=== PATIENT | male | born 1965 | race American Indian/Alaskan Native ===

== ENCOUNTER 2024-09-11 13:45 | Emergency (ER) | payer MEDICAID, SELFPAY ==
[2024-09-11] VITALS (7 sets, daily range): BP systolic 152–168; BP diastolic 92–98; PULSE 82–109; RESP 14–22; TEMP 36.6–37.1; O2SAT 96–100; BMI 29.2
--- NOTE | 2024-09-11 13:59 | EDNOTE_ITS ---
ED Seizures RME/HPI General Chief Complaint: Seizure Stated Complaint: POSSIBLE SEIZURE AFTER PUT IN HANDCUFFS Time Seen by Provider: 09/11/24 14:06 Arrival date/time: 09/11/24 13:45 RME / HPI RME / HPI Narrative: DR. DAILEY MAIN ED EVALUATION: 59 year old male with past medical history significant for valley fever, hypertension, and COPD/ current tobacco smoker, methamphetamine abuse presents to the Emergency Department BIBA after a possible seizure after he was put in handcuffs by police; he was let go by police and brought in for evaluation. Per EMS, police reported seizure lasted 30 seconds to a 1 minute. After patient became more alert he complained of the following: left lower leg swelling, some shortness of breath, and a productive cough with yellow phlegm. No fevers or chills. No other symptoms reported at this time. He states he was recently admitted for pneumonia discharged on 05/13/24. Related Data Previous Rx's ?Medication ?Instructions ?Recorded albuterol sulfate 90 mcg/actuation 1 inh inhalation QI D PRN shortness 05/13/24 aerosol inhaler of breath or wheezing #6.7 g sarah beth azithromycin 250 mg tablet 250 mg PO QDAY 4 days #4 ta bs 09/11/24 Allergies Allergy/AdvReac Type Severity Reaction Status Date / Time coconut Allergy Severe Hives Verified 09/11/24 14:11 iodine Allergy Severe Hives Verified 09/11/24 14:11 Penicillins Allergy Severe Hives Verified 09/11/24 14:11 Review of Systems Review of Systems Systems Reviewed: All systems reviewed, normal except as documented Narrative Review of Systems: GEN: No fever, no chills, no weight loss, + left lower leg swelling EYES: No discharge, no visual changes, no pain HEENT: No ear pain, no congestion, no sore throat PULM: + mild shortness of breath, + productive cough with yellow phlegm CV: No chest pain, no dyspnea on exertion, no palpitations GI: No nausea, no vomiting, no diarrhea, no pain, no constipation : No frequency, no urgency and no dysuria MUSC/SKEL: No joint pain, no back pain SKIN: No rash PSYCH: No hallucinations, no depression HEME/LYMPH: No easy bleeding or bruising tendencies NEURO: No weakness, no headache, + possible seizure (see HPI) Past Medical History Past Medical History NEUROLOGIC: Positive Epilepsy CARDIAC: Positive Cardiac Disorders, Myocardial Infarction and Hypertension RESPIRATORY: Positive Chronic Obstructive Pulmonary Disease (COPD), Asthma and Pneumonia Family History FAMILY HISTORY: Positive Family Respiratory Disorders, Family Cardiac Disorders and Family Cancer Social History SMOKING STATUS: Current some day smoker SECOND HAND EXPOSURE: No SUBSTANCE USE: methamphetamine ALCOHOL: Never ED Exam Narrative Physical exam: GENERAL APPEARANCE: alert and oriented x 4, well-developed, well-nourished VITALS: All vitals were reviewed and the pulse ox is 98% on room air, which is normal according to my interpretation. HEENT: Normocephalic, atraumatic; pupils equal, round, reactive to light; EOMI; mucous membranes pink, moist; oropharynx clear NECK: Supple LUNGS: there are some mild wheezes, no rales and no rhonchi HEART: tachycardic, regular rhythm; normal S1, S2; no murmurs ABDOMEN: non distended; normal BS; soft, no tenderness, no guarding, no rebou nd; no masses, no organomegaly, no hernia BACK: no CVA tenderness EXTREMITIES: atraumatic; there is 2+ pitting edema left lower extremity only NEUROLOGIC: awake; alert and oriented x4; cranial nerves II-XII grossly intact; no focal sensory or motor deficits PSYCHIATRIC: appropriate mood and affect SKIN: warm, dry, normal color; no rashes Course Quality Measures none Orders Category Date Time Status Service Desk Agent NOW Care 09/11/24 14:46 Completed EKG (ED ONLY) *Do not use* NOW Care 09/11/24 14:46 Completed EKG (ED Only) Stat Exams 09/11/24 14:46 Draft US venous doppler LE LT Stat Exams 09/11/24 14:46 Completed XR chest 1V portable Stat Exams 09/11/24 14:46 Completed Alcohol, Blood Medical Stat Lab 09/11/24 15:12 Completed B-Type Natriuretic Peptide Stat Lab 09/11/24 15:12 Completed CBC Stat Lab 09/11/24 15:12 Completed Comprehensive Metabolic Panel Stat Lab 09/11/24 15:12 Completed Drug Screen,Urine Stat Lab 09/11/24 16:15 Completed Lipase Stat Lab 09/11/24 15:12 Completed Magnesium Stat Lab 09/11/24 15:12 Completed Partial Thromboplastin Time Stat Lab 09/11/24 15:12 Completed Prothrombin Time with INR Stat Lab 09/11/24 15:12 Completed Troponin I Stat Lab 09/11/24 15:12 Completed UA, C/S IF [Urinalysis, C/S if Indicated] Stat Lab 09/11/24 16:15 Completed Albuterol/Ipratr Rt Maggi [Duoneb Rt Maggi] Med 09/11/24 14:46 Discontinued 3 ml INH X1 ONE Azithromycin Po [Zithromax PO] Med 09/11/24 17:57 Discontinued 500 mg PO X1 ONE Vital Signs Vital signs: Vital Signs Temperature 97.8 F 09/11/24 14:00 Pulse Rate 109 H 09/11/24 14:00 Respiratory Rate 18 09/11/24 14:00 Blood Pressure 162/98 H 09/11/24 14:00 Pulse Oximetry (%) 97 09/11/24 14:00 Oxygen Delivery Method Room Air 09/11/24 14:00 Procedures -ED EKG Interpretation #1: Date of EK09/11/24 Time of EK:58 Rate: 90 Interpretation: Interpreted by me Additional EKG comment: sinus rhythm, rate 90, no acute ischemic changes Seizure MDM Narrative MDM Narrative:: IDee am scribing for and in the presence of Dr. Dailey. Patient data External records reviewed:: [facility] (Reviewed last admission discharge dated 05/13/24, patient admitted for the following: Pneumonia) and EMS form Clinical information provided by:: patient and EMS Social determinants that could affect healthcare access:: other (specify) (current tobacco smoker, methamphetamine abuse) Patient has the following chronic illnesses:: valley fever, hypertension, and COPD/ current tobacco smoker, methamphetamine How is presenting disease/condition affected by chronic disease/condition?: exacerbated by Evaluation data The following diagnostics were reviewed and interpreted by me:: lab results, radiology exam(s) and EKG tracing(s) (EKG#1: EKG at 1458 hours. Interpreted by me: sinus rhythm, rate 90, no acute ischemic changes) Lab and/or radiology exams considered but not ordered:: none Interpretation Summary: Procedure(s): XR chest 1V portable Accession Number(s): [id number] cc: Alexander Gage MD; Camille Dailey MD; DONAL ARREAGA~ EXAMINATION: XR chest 1V portable ORDERING PROVIDER: Camille Dailey MD HISTORY: chest pain TECHNIQUE: Single portable AP radiograph of the chest. COMPARISON: 05/11/2024, chest radiographs. FINDINGS: Lines and Tubes: Overlying monitoring leads. Lungs: Clear. Pleura: No pneumothorax or pleural effusion. Cardiomediastinal Silhouette: Normal. Soft Tissues/Bones: Glenoid anchor screw on the left. Metallic necklace. IMPRESSION: No acute pulmonary findings. Dictated By: Alexander Gage MD Procedure(s): US venous doppler LE LT Accession Number(s): [id number] cc: Alexander Gage MD; Camille Dailey MD; DONAL ARREAGA~ EXAMINATION: US venous doppler LE HISTORY: edema COMPARISON: None. FINDINGS: Nelson scale, color doppler, and spectral waveforms of the left lower extremity veins. The imaged veins are unremarkable without evidence of internal thrombus. Spectral Doppler imaging demonstrates normal wave forms. The overlying soft tissues are unremarkable. IMPRESSION: Negative for deep venous thrombosis. Dictated By: Alexander Gage MD Medications / Prescriptions Medications or Prescriptions considered but not ordered:: none Medication administrations:: Medication Administration History Discontinued Medications Albuterol/Ipratropium (Albuterol/Ipratropium (Duoneb) Rt Maggi 3 Ml Nebu) 3 ml INH X1 ONE Stop: 09/11/24 14:47 Last Admin: 09/11/24 15:18 Dose: 3 ml Documented By: [facility] Azithromycin (Azithromycin 250 Mg Tablet) 500 mg PO X1 ONE Stop: 09/11/24 17:58 Last Admin: 09/11/24 18:11 Dose: Not Given Documented By: [facility](2) Non-Admin Reason: Patient Refused see above if any Consultations Consultation(s) initiated? (list below): No Diagnosis Seizure Differential Diagnosis: generalized seizure, epileptic seizure and other (DVT, pneumonia, influenza) Most likely diagnosis given after review of the tests above:: Bronchitis Methamphetamine abuse Admission Indicated Admission indicated?: not indicated Admission Request Was there a request for admission?: No Disposition Plan Disposition Plan: Discharge Discharge Attestation Discharge Attestation: The patient and all family members were given an opportunity to ask questions and understood the discharge instructions. Discharge instructions specifically effects, indications for sooner follow up or return to the emergency department, and the expected course of current diagnosis. Patient condition: Stable Discharge Plan Plan Patient Disposition: HOME (Self Care) Prescriptions/Referrals Prescriptions/Med Rec: New azithromycin 250 mg tablet 250 mg PO QDAY 4 Days Qty: 4 0RF Rx Instructions: start on day 2 of therapy No Action albuterol sulfate 90 mcg/actuation HFA aerosol inhaler 1 inh inhalation QID PRN (Reason: shortness of breath or wheezing) Qty: 6.7 0RF Referrals: Donal Arreaga PA-C [Primary Care Provider] - In 1 week Problem List Clinical Impression: Bronchitis, Methamphetamine abuse Patient/Caregiver Discharge Instructions Education Materials: ED Bronchitis with Wheezing (Adult), ED Drug Abuse Print Language: Icelandic Stand Alone Forms: Leidy Award Info., Patient Portal Info Letter
--- NOTE | 2024-09-11 14:20 | PC.NURSE ---
PATIENT ARRIVED ED VIA EMS SECONDARY TO SEIZURE ACTIVITY. SEIZURE WAS WITNESSED BY [facility] AT SCENE. NO TRAUMA. PATIENT ARRIVED WITH NO COMPLAINTS AT TIME OF ASSESSMENT. IV ESTABLISHED BY EMS, BS OF 106. PATIENT PLACED ON MONITOR AND SEIZURE PRECAUTIONS IN PLACE. PATIENT GIVEN CALL LIGHT AND IS IN VISUAL LINE OF NURSES. WILL CONTINUE TO MONITOR.
--- NOTE | 2024-09-11 14:46 | XR_ITS ---
EXAMINATION: US venous doppler LE LT HISTORY: edema COMPARISON: None. FINDINGS: Nelson scale, color doppler, and spectral waveforms of the left lower extremity veins. The imaged veins are unremarkable without evidence of internal thrombus. Spectral Doppler imaging demonstrates normal wave forms. The overlying soft tissues are unremarkable. IMPRESSION: Negative for deep venous thrombosis.
--- NOTE | 2024-09-11 14:46 | EKG_ITS ---
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
--- NOTE | 2024-09-11 14:46 | XR_ITS ---
EXAMINATION: XR chest 1V portable ORDERING PROVIDER: Camille Dailey MD HISTORY: chest pain TECHNIQUE: Single portable AP radiograph of the chest. COMPARISON: 05/11/2024, chest radiographs. FINDINGS: Lines and Tubes: Overlying monitoring leads. Lungs: Clear. Pleura: No pneumothorax or pleural effusion. Cardiomediastinal Silhouette: Normal. Soft Tissues/Bones: Glenoid anchor screw on the left. Metallic necklace. IMPRESSION: No acute pulmonary findings.
[2024-09-11] MEDS: ALBUTEROL/IPRATROPIUM (Duoneb) RT SOL 3 ML NEBU INH (15:18)
[2024-09-11 15:31] LABS: Basophils % (Auto) 0 % (0-2.5); Eosinophils # (Auto) 0.3 Thou/mm3 (0.0-0.5); Eosinophils % (Auto) 3 % (0-10); Hemoglobin 11.9 g/dL (13.5-16.0); Immature Granulocytes % (Auto) 0 % (0-0); Immature Granulocytes Auto 0.03 Thou/mm3 (0.00-0.00); Lymphocytes % (Auto) 21 % (10-50); Mean Corpuscular HGB Conc 32.2 g/dl (31.0-37.0); Mean Corpuscular Hemoglobin 25.7 pg (25.0-35.0); Mean Corpuscular Volume 80 fL (80-100); Monocytes # (Auto) 0.8 Thou/mm3 (0.0-0.8); Monocytes % (Auto) 9 % (0-12); Neutrophils # (Auto) 6.2 Thou/mm3 (1.8-7.7); Neutrophils % (Auto) 67 % (37-80); Nucleated Red Blood Cell % 0 /100 WBC (0); Platelet Count 372 Thou/mm3 (140-440); RDW Standard Deviation 43.8 fL (35.1-43.9); Red Blood Count 4.63 Miln/mm3 (4.50-5.90); White Blood Count 9.2 Thou/mm3 (3.8-10.6)
[2024-09-11 15:46] LABS: Partial Thromboplastin Time 28.8 Seconds (22.0-36.0); Prothrombin Time 10.7 Seconds (9.0-12.2)
[2024-09-11 15:47] LABS: B-Type Natriuretic Peptide 31 pg/mL (0-100)
[2024-09-11 15:52] LABS: Alanine Aminotransferase 16 U/L (10-49); Albumin, Serum 3.6 gm/dL (3.5-5.0); Albumin/Globulin Ratio 1.5 (1.2-2.2); Alcohol, Blood Medical < 3.0 mg/dL (0-10.0); Alkaline Phosphatase 87 U/L (46-116); Anion Gap 4 (7-16); Aspartate Amino Transferase 20 U/L (0-34); BUN/Creatinine Ratio 26 Ratio (12-20); Bilirubin,Total 0.3 mg/dL (0.3-1.2); Blood Urea Nitrogen 18 mg/dL (9-23); Calcium 8.9 mg/dL (8.3-10.6); Calcium (Corrected) 9.2 mg/dL (8.5-10.1); Carbon Dioxide 28.3 mMol/L (20.0-31.0); Chloride 109 mMol/L (98-107); Creatinine (Component) 0.7 mg/dL (0.6-1.3); Estimated Creatinine Clearance 104.3 mL/min (>60); Globulin 2.4 gm/dL (2.3-3.5); Glucose 97 mg/dL (74-106); Lipase 27 U/L (12-53); Osmolality,Calculated 283 (275-295); Potassium 3.7 mMol/L (3.4-5.1); Sodium 141 mMol/L (136-145); Troponin I < 0.020 ng/mL (0.0-0.045); eGFR > 60 See Note
[2024-09-11 16:22] LABS: Collection Type, Urine Clean Catch; Squamous Epithelial Cell,Urine 0 /hpf (0-5)
[2024-09-11 16:34] LABS: Bilirubin,Urine Negative (Negative); Blood,Urine Negative (Negative); Clarity,Urine Clear (Clear/Hazy); Color,Urine Lt-Yellow (Lt Yel-Yel); Culture Indicated,Urine Not Indicated; Glucose, Urine Negative (Negative); Ketones,Urine Negative (Negative); Leukocyte Esterase,Urine Negative (Negative); Nitrite,Urine Negative (Negative); PH,Urine 6.5 (5.0-7.0); Protein,Urine Negative (Neg - Trace); RBC,Urine 2 /hpf (0-3); Specific Gravity,Urine 1.022 (1.001-1.035); Urobilinogen,Urine Negative mg/dL (0.0-1.0); WBC,Urine 1 /hpf (0-5)
[2024-09-11 16:39] LABS: Sperm,Urine Present
[2024-09-11 16:52] LABS: Amphetamine/Methamp Scrn,U Positive (Negative); Barbiturate Screen,Urine Negative (Negative); Benzodiazepines Screen,Urine Negative (Negative); Benzoylecgonine Screen, Ur Negative (Negative); Fentanyl Screen,Urine Negative (Negative); Opiate Screen,Urine Negative (Negative); THC Screen,Urine Negative (Negative)
== END 2024-09-11 18:13 | disposition home or self-care (01) ==
PROVIDERS: Emergency Provider Emergency Medicine; PCP Physician Assistant
DX: J40 Bronchitis, not specified as acute or chronic (principal); F15.10 Other stimulant abuse, uncomplicated; J44.9 Chronic obstructive pulmonary disease, unspecified; I10 Essential (primary) hypertension
CPT/HCPCS: 36415; 71045; 80053; 80307; 80320; 81001; 83690; 83735; 83880; 84484; 85025; 85610; 85730; 93005; 93971; 94640; 99284; A9270; G0480

== ENCOUNTER 2025-05-07 19:38 | Emergency (ER) | payer MEDICAID, SELFPAY ==
[2025-05-07 19:39] VITALS: BMI 28.3
--- NOTE | 2025-05-07 19:52 | EDNOTE_ITS ---
ED SOB =RME/HPI General Chief Complaint: Shortness of Breath/Dyspnea Stated Complaint: DIFFIUCLTY BREATHING, 'I THINK I HANE PNEUMONIA Time Seen by Provider: 05/07/25 19:57 Arrival date/time: 05/07/25 19:38 RME / HPI RME / HPI Narrative: See MDM for Dr. Singleton's HPI documentation. Related Data Previous Rx's ?Medication ?Instructions ?Recorded albuterol sulfate 90 mcg/actuation 1 inh inhalation QI D PRN shortness 05/13/24 aerosol inhaler of breath or wheezing #6.7 g sarah beth albuterol sulfate 90 mcg/actuation 2 puff inhalation Q 6H PRN 05/07/25 aerosol inhaler shortness of breath or wheez ing #8.5 grams azithromycin 500 mg tablet 500 mg PO QDAY 3 days #3 ta bs 05/07/25 (Zithromax TRI-ADELE) cefdinir 300 mg capsule 300 mg PO BID #14 caps 05/07 prednisone 50 mg tablet 50 mg PO BID 3 days #6 tabs 05/07/25 Allergies Allergy/AdvReac Type Severity Reaction Status Date / Time coconut Allergy Severe Hives Verified 09/11/24 14:11 iodine Allergy Severe Hives Verified 09/11/24 14:11 Penicillins Allergy Severe Hives Verified 09/11/24 14:11 Review of Systems Review of Systems Systems Reviewed: All systems reviewed, normal except as documented Past Medical History Past Medical History NEUROLOGIC: Positive Epilepsy; Negative Neurological Disorders CARDIAC: Positive Cardiac Disorders, Myocardial Infarction and Hypertension; Negative Congestive Heart Failure RESPIRATORY: Positive Chronic Obstructive Pulmonary Disease (COPD), Asthma and Pneumonia; Negative Bronchitis, Emphysema, Pulmonary Fibrosis, Cystic Fibrosis, Tuberculosis, Pulmonary Embolism, Pulmonary Edema or Sleep Apnea GASTROINTESTINAL: Negative Gastrointestinal Disorders, Hepatitis or Colorectal Cancer GENITOURINARY: Negative Genitourinary Disorders, Renal Disease or Prostate Cancer REPRODUCTIVE: Negative Breast Cancer or Testicular Cancer MUSCULOSKELETAL: Negative Musculoskeletal Disorders, Bone Cancer or Carpal Tunnel Syndrome ENDOCRINE: Negative Endocrine Disorders, Diabetes Mellitus Type 1 or Diabetes Mellitus Type 2 HEMATOLOGIC: Negative Blood Disorders or Sickle Cell Disease OTHER HISTORY: Negative Hospitalization, Autoimmune Disease, Down Syndrome, Developmental Delay, Shingles, Falls, Blood Transfusions, Blood Transfusion Reaction, Anesthesia Reactions, Organ Transplant, Chemotherapy, Radiation Therapy, Hyperbaric Therapy, MRSA, VRSA, Vancomycin-Resistant Enterococci, Human Immunodeficiency Virus (HIV), Chicken Pox, Measles, Mumps, Rubella (Bulgarian Measles), Pertussis, Clostridium Difficile, Cancer, Breast Cancer, Colorectal Cancer, Lung Cancer, Ovarian Cancer, Prostate Cancer or Testicular Cancer Family History FAMILY HISTORY: Positive Family Respiratory Disorders, Family Cardiac Disorders and Family Cancer; Negative Family Psychiatric Problems, Family Gastrointestinal Problems, Family Surgery or Family Anesthesia Reaction Surgical History SURGICAL: Negative Cardiac Surgery, Endocrine Surgery, Thyroidectomy, Ear Surgery, Abdominal Surgery, Nephrectomy, Transurethral Resection, Joint Replacement, Amputation, Open Reduction Internal Fixation, Arthroscopy, Neurologic Surgery, Brain Shunt, Mastectomy, Lumpectomy, Hysterectomy, Tubal Ligation, Section, Vasectomy or Organ Transplant Social History SMOKING STATUS: Current some day smoker SECOND HAND EXPOSURE: No SUBSTANCE USE: methamphetamine ED Exam Narrative Physical exam: See MDM for Dr. Singleton's physical exam documentation. Course Course Course Narrative: CXR is ordered for determining the etiology of shortness of breath. Quality Measures none Orders Category Date Time Status Bedside COVID-19 Antigen Test NOW Care 05/07/25 19:59 Completed EKG (ED ONLY) *Do not use* NOW Care 05/07/25 19:59 Completed EKG (ED Only) Stat Exams 05/07/25 19:59 Ordered XR chest 1V portable Stat Exams 05/07/25 19:59 Completed Alcohol, Blood Medical Stat Lab 05/07/25 20:23 Completed BNP [B-Type Natriuretic Peptide] Stat Lab 05/07/25 20:23 Completed Bilirubin,Direct Stat Lab 05/07/25 20:23 Completed CBC Stat Lab 05/07/25 20:23 Completed CK [Creatine Kinase] Stat Lab 05/07/25 20:23 Completed CMP [Comprehensive Metabolic Panel] Stat Lab 05/07/25 20:23 Completed Influenza A & B Rapid Panel Stat Lab 05/07/25 20:20 Completed Magnesium Stat Lab 05/07/25 20:23 Completed TSH [Thyroid Stimulating Hormone] Stat Lab 05/07/25 20:23 Completed Troponin I Stat Lab 05/07/25 20:23 Completed Albuterol/Ipratr Rt Maggi [Duoneb Rt Maggi] Med 05/07/25 19:58 Discontinued 3 ml INH X1 ONE Azithromycin Po [Zithromax PO] Med 05/07/25 20:25 Discontinued 500 mg PO X1 ONE predniSONE Med 05/07/25 19:58 Discontinued 80 mg PO X1 ONE Vital Signs Vital signs: Vital Signs Temperature 99.0 F 05/07/25 19:59 Pulse Rate 87 05/07/25 19:59 Respiratory Rate 16 05/07/25 19:59 Blood Pressure 164/94 H 05/07/25 19:59 Pulse Oximetry (%) 98 05/07/25 19:59 Oxygen Delivery Method Room Air 05/07/25 19:59 Shortness of Breath / Dyspnea MDM Narrative MDM Narrative:: This section includes all my notes and documentations, including HPI, PE, and ED course. Ramiro Singleton MD HPI: 60yo male with history of COPD, HTN here with about a week history of worsening cough, productive cough, purulent sputum, and dyspnea. No other complaints. ROS: All negative except as documented in HPI. Physical Exam: General: Alert and oriented. Hacking cough noted. Eyes: Conjunctivae and lids clear. ENT: No nasal congestion. Pharynx normal. TM normal bilaterally. Neck: Supple. Heart: RRR. Lungs: No respiratory distress. Mildly decreased air movement with diffuse rhonchi. Abdomen: Soft and nontender. Normal bowel sounds. No distension. No rebound or guarding. Back: No CVA tenderness. Skin: Warm and dry. Neuro: Alert and oriented X 3. I reviewed all diagnostic test results. My interpretation of the EKG is sinus rhythm with nonspecific ST-T changes. My interpretation of the chest x-ray is infiltrates. Blood tests unremarkable. COVID/influenza negative. At this point, diagnoses include: Pneumonia Treatment here included: Duoneb Azithromycin 500 mg PO Prednisone 80 mg PO Significant improvement noted. Recommend outpatient management. Based on my best medical judgment, made decision no further evaluation or treatment indicated at this time. Patient understands and agrees to the discharge instructions customized and printed, see below. Discharge instructions from Dr. Singleton: --No physical exertion for 3 days to help rest the lungs. ?No smoking or exposure to smoking or pets or dust or cold or humidity. --Zithromax and cefdinir to kill the germs causing the pneumonia. --Prednisone to help decrease the swelling in the airways. --Albuterol 2 puffs every 4-6 hours for 3 days to help keep the airways open. Then as needed for cough or shortness of breath. --See a private doctor on 05/09/25 for recheck. Ask for help until you are completely better. --Seek immediate medical care with worsening or with any concerns. Ramiro Singleton MD Patient data External records reviewed:: [facility] previous records (Per chart review, patient was seen here on 09/11/24 for bronchitis.) Clinical information provided by:: patient Social determinants that could affect healthcare access:: substance use (history of methamphetamine use) Patient has the following chronic illnesses:: COPD, HTN, meth use, prior LA, and asthma How is presenting disease/condition affected by chronic disease/condition?: exacerbated by Evaluation data The following diagnostics were reviewed and interpreted by me:: lab results, radiology exam(s) and EKG tracing(s) (My interpretation of the EKG is: Sinus rhythm (76 bpm) with nonspecific ST-T changes. Ramiro Singleton MD) Lab and/or radiology exams considered but not ordered:: none Interpretation Summary: I reviewed all diagnostic test results. My interpretation of the EKG is sinus rhythm with nonspecific ST-T changes. My interpretation of the chest x-ray is infiltrates. Blood tests unremarkable. COVID/influenza negative. Medications / Prescriptions Medications or Prescriptions considered but not ordered:: none Medication administrations:: Medication Administration History Discontinued Medications Albuterol/Ipratropium (Albuterol/Ipratropium (Duoneb) Rt Maggi 3 Ml Nebu) 3 ml INH X1 ONE Stop: 05/07/25 19:59 Last Admin: 05/07/25 20:32 Dose: 3 ml Documented By: [email or web address] Azithromycin (Azithromycin 250 Mg Tablet) 500 mg PO X1 ONE Stop: 05/07/25 20:26 Last Admin: 05/07/25 20:31 Dose: 500 mg Documented By: BD Prednisone (Prednisone 20 Mg Tablet) 80 mg PO X1 ONE Stop: 05/07/25 19:59 Last Admin: 05/07/25 20:32 Dose: 80 mg Documented By: BD Treatment here included: Duoneb Azithromycin 500 mg PO Prednisone 80 mg PO Consultations Consultation(s) initiated? (list below): No Diagnosis Shortness of Breath Differential Diagnosis: acute exacerbation of chronic obstructive airways disease, congestive heart failure, community acquired pneumonia, asthma with exacerbation and pulmonary embolism Most likely diagnosis given after review of the tests above:: Pneumonia Admission Indicated Admission indicated?: not indicated Explain why admission is indicated or not indicated:: With significant improvement and no condition needing emergent intervention, there was no indication for admission. Admission Request Was there a request for admission?: No Disposition Plan Disposition Plan: Discharge Discharge Attestation Discharge Attestation: The patient and all family members were given an opportunity to ask questions and understood the discharge instructions. Discharge instructions specifically effects, indications for sooner follow up or return to the emergency department, and the expected course of current diagnosis. Patient condition: Stable Discharge Plan Plan Patient Disposition: HOME (Self Care) Prescriptions/Referrals Prescriptions/Med Rec: New prednisone 50 mg tablet 50 mg PO BID 3 Days Qty: 6 0RF albuterol sulfate 90 mcg/actuation HFA aerosol inhaler 2 puff inhalation Q6H PRN (Reason: shortness of breath or wheezing) Qty: 8.5 0RF cefdinir 300 mg capsule 300 mg PO BID Qty: 14 0RF azithromycin [Zithromax TRI-ADELE] 500 mg tablet 500 mg PO QDAY 3 Days Qty: 3 0RF No Action albuterol sulfate 90 mcg/actuation HFA aerosol inhaler 1 inh inhalation QID PRN (Reason: shortness of breath or wheezing) Qty: 6.7 0RF Referrals: Donal Sultana PA-C [Primary Care Provider] - In 1 week Problem List Clinical Impression: Pneumonia Patient/Caregiver Discharge Instructions Discharge Activity: activity as tolerated Education Materials: ED Pneumonia (Adult) Additional Instructions: Discharge instructions from Dr. Singleton: --No physical exertion for 3 days to help rest the lungs. ?No smoking or exposure to smoking or pets or dust or cold or humidity. --Zithromax and cefdinir to kill the germs causing the pneumonia. --Prednisone to help decrease the swelling in the airways. --Albuterol 2 puffs every 4-6 hours for 3 days to help keep the airways open. Then as needed for cough or shortness of breath. --See a private doctor on 05/09/25 for recheck. Ask for help until you are completely better. --Seek immediate medical care with worsening or with any concerns. Print Language: Sudanese Stand Alone Forms: Leidy Award Info., Patient Portal Info Letter
[2025-05-07 19:59] VITALS: BP 164/94; PULSE 87; RESP 16; TEMP 37.2; O2SAT 98
--- NOTE | 2025-05-07 19:59 | EKG_ITS ---
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
--- NOTE | 2025-05-07 19:59 | XR_ITS ---
EXAMINATION: PA chest single view TECHNIQUE: 1. Upright PA chest single view Date and time: May 07, 2025, 1816 hours, comparison September 11, 2024 INDICATIONS: Coughing fever chills shortness of breath today FINDINGS: Rounded opacity in the right upper lobe most consistent with pneumonia Normal heart size No pulmonary edema IMPRESSION: Findings most consistent with right upper lobe pneumonia Follow-up strongly advised to exclude underlying pulmonary mass in the right upper lobe
[2025-05-07] MEDS: AZITHROMYCIN 250 MG TABLET 500 MG PO (20:31)
[2025-05-07] MEDS: ALBUTEROL/IPRATROPIUM (Duoneb) RT SOL 3 ML NEBU INH (20:32)
[2025-05-07 20:33] VITALS: PULSE 74; RESP 18; O2SAT 100
[2025-05-07 20:52] LABS: Basophils # (Auto) 0.0 Thou/mm3 (0.0-0.2); Basophils % (Auto) 1 % (0-2.5); Eosinophils # (Auto) 0.4 Thou/mm3 (0.0-0.5); Eosinophils % (Auto) 5 % (0-10); Hematocrit 41.5 % (41.0-53.0); Hemoglobin 13.3 g/dL (13.5-16.0); Immature Granulocytes Auto 0.02 Thou/mm3 (0.00-0.00); Lymphocytes # (Auto) 2.8 Thou/mm3 (1.0-4.8); Lymphocytes % (Auto) 32 % (10-50); Mean Corpuscular HGB Conc 32.0 g/dl (31.0-37.0); Mean Corpuscular Hemoglobin 25.9 pg (25.0-35.0); Mean Corpuscular Volume 81 fL (80-100); Monocytes # (Auto) 0.6 Thou/mm3 (0.0-0.8); Monocytes % (Auto) 7 % (0-12); Neutrophils # (Auto) 5.0 Thou/mm3 (1.8-7.7); Neutrophils % (Auto) 56 % (37-80); Nucleated Red Blood Cell # 0.00 Thou/mm3 (0.00-0.00); Nucleated Red Blood Cell % 0 /100 WBC (0); Platelet Count 295 Thou/mm3 (140-440); RDW Standard Deviation 44.9 fL (35.1-43.9); Red Blood Count 5.13 Miln/mm3 (4.50-5.90); White Blood Count 8.9 Thou/mm3 (3.8-10.6)
[2025-05-07 20:56] LABS: Influenza A Ag Negative; Influenza B Ag Negative
[2025-05-07 21:03] LABS: B-Type Natriuretic Peptide < 20 pg/mL (0-100)
[2025-05-07 21:17] LABS: Alanine Aminotransferase 9 U/L (10-49); Albumin, Serum 4.4 gm/dL (3.5-5.0); Albumin/Globulin Ratio 1.9 (1.2-2.2); Alkaline Phosphatase 100 U/L (46-116); Anion Gap 7 (7-16); Aspartate Amino Transferase 15 U/L (0-34); BUN/Creatinine Ratio 19 Ratio (12-20); Bilirubin,Total 0.3 mg/dL (0.3-1.2); Blood Urea Nitrogen 13 mg/dL (9-23); Calcium 9.0 mg/dL (8.3-10.6); Calcium (Corrected) 9.0 mg/dL (8.5-10.1); Carbon Dioxide 28.1 mMol/L (20.0-31.0); Chloride 107 mMol/L (98-107); Creatine Kinase 119 U/L (34-171); Creatinine (Component) 0.7 mg/dL (0.6-1.3); Estimated Creatinine Clearance 101.5 mL/min (>60); Globulin 2.3 gm/dL (2.3-3.5); Glucose 87 mg/dL (74-106); Magnesium 2.1 mg/dL (1.6-2.6); Osmolality,Calculated 282 (275-295); Potassium 3.8 mMol/L (3.4-5.1); Sodium 142 mMol/L (136-145); Thyroid Stimulating Hormone 7.60 uIU/mL (0.55-4.78); Total Protein 6.7 gm/dL (5.7-8.2); Troponin I < 0.020 ng/mL (0.0-0.045); eGFR > 60 See Note
[2025-05-07 21:33] LABS: Alcohol, Blood Medical < 3.0 mg/dL (0-10.0); Bilirubin,Direct < 0.1 mg/dL (0.0-0.3)
== END 2025-05-07 21:52 | disposition home or self-care (01) ==
PROVIDERS: Emergency Provider Emergency Medicine; PCP Physician Assistant
DX: J18.9 Pneumonia, unspecified organism (principal); I10 Essential (primary) hypertension; J44.0 Chronic obstructive pulmonary disease with (acute) lower respiratory infection; Z11.52 Encounter for screening for COVID-19; Z79.52 Long term (current) use of systemic steroids
CPT/HCPCS: 36415; 71045; 80053; 80307; 80320; 81001; 82248; 82550; 83735; 83880; 84443; 84484; 85025; 87502; 87635; 93005; 94640; 99283; A9270; J7512; G0480

== ENCOUNTER 2025-05-21 17:17 | Emergency (ER) | payer MEDICAID, SELFPAY ==
[2025-05-21 18:42] VITALS: BP 145/80; PULSE 64; RESP 20; TEMP 37.1; O2SAT 98
--- NOTE | 2025-05-21 18:47 | EKG_ITS ---
[facility] Test Date: 2025-05-21 Pat Name: ТАТЬЯНА MTZ Department: Room: - Gender: Male [employer]: : 1965 Requested By: Sonam Carvalho Order Number: [id number] Reading MD: Sonam Carvalho Measurements Intervals [place] Rate: 66 P: 78 ME: 147 QRS: 30 QRSD: 102 T: 51 QT: 406 QTc: 428 Interpretive Statements SINUS RHYTHM MINIMAL VOLTAGE CRITERIA FOR LVH, CONSIDER NORMAL VARIANT [MEETS CRITERIA IN ONE OF: R(aVL), S(V1), R(V5), R(V5/V6)+S(V1)] Compared to ECG 05/07/2025 20:14:39 No significant changes /store/S0/[id number].pdf
--- NOTE | 2025-05-21 18:47 | XR_ITS ---
EXAMINATION: PA chest single view TECHNIQUE: Upright PA chest single view Date and time: May 21, 2025, 1909 hours, comparison May 07, 2025 INDICATIONS: Shortness of breath today. FINDINGS: Early pneumonia right base Normal heart size Left lung clear IMPRESSION: Early pneumonia right base
--- NOTE | 2025-05-21 18:57 | PD.EDSOB ---
ED SOB =RME/HPI General Chief Complaint: Shortness of Breath/Dyspnea Stated Complaint: SOB, RECENT PNA DX Arrival date/time: 05/21/25 17:17 RME / HPI RME / HPI Narrative: CC: SOB Patient is a 60 year old male with a past medical history of hypertension, COPD-current smoker, and history of substance use disorder, meth, who presented with a chief complain of shortness of breath and recent history of emergency room visit discharge who was diagnosed with pneumonia and prescribed antibiotics. Per patient history, has not picked up any of his prescribed medication-including antibiotics or steriods. Patient complaining of shortness of breath, increased cough, and subjective fevers at home. Denied any drug use. Denied any vomiting. Denied any diarrhea or blood in stool. Denied abdominal pain. Related Data Previous Rx's ?Medication ?Instructions ?Recorded albuterol sulfate 90 mcg/actuation 2 inh inhalation QID PRN shortness 05/21/25 aerosol inhaler of breath or wheezing #6.7 grams doxycycline monohydrate 100 mg 100 mg PO BID pneumonia 5 days #10 05/21/25 capsule caps Allergies Allergy/AdvReac Type Severity Reaction Status Date / Time coconut Allergy Severe Hives Verified 05/21/25 17:21 iodine Allergy Severe Hives Verified 05/21/25 17:21 Penicillins Allergy Severe Hives Verified 05/21/25 17:21 Review of Systems Review of Systems Narrative Review of Systems: General appearance: NO weight change, NO fatigue, NO weakness, Yes subjective-fever, Yes chills, NO night sweats, No cough Skin: NO rash, NO itching, NO sores, NO moles HEENT: NO Trauma, NO nausea, NO vomiting, NO visual changes, NO blurry vision, NO double vision, NO tinnitus, NO vertigo, NO ear discharge, NO rhinorrhea, NO stuffiness, NO sneezing, NO allergy, NO epistaxis. NO Hoarseness, NO sore throat, NO swollen neck. Cardiac: NO Palpitations, NO dyspnea on exertion, NO orthopnea, NO paroxysmal nocturnal dyspnea, NO edema Respiratory: Yes Shortness of Breath, NO Wheezing, Yes Cough, Yes Sputum, NO hemoptysis GI:NO appetite, NO nausea, NO vomiting, NO dysphagia, NO changes in bowel frequency, NO stool color, NO diarrhea, NO constipation, NO hemetemesis, NO hemorrhoids, NO melena, NO hematechezia, NO abdominal pain, NO jaundice Renal: NO frequency, NO hesitancy, NO urgency, NO hematuria, NO nocturia, NO incontinence MSK: NO muscle weakness, NO gout, NO arthritis, NO muscle stiffness Neuro: NO headaches, NO tremors, NO weakness, NO paralysis, NO seizures, NO loss of consciousness, NO numbness. Hem: NO anemia, NO easy bruising/bleeding, NO petechiae, NO purpura Endo: NO heat/cold intolerance, NO excessive sweating, NO polyuria, NO polydipsia, NO polyphagia, NO thyroid problems, NO diabetes Pysch: NO mood, NO anxiety, NO depression ED Exam Narrative Physical exam: General Appearance: Alert & Oriented X3, well-nourished male who is sitting in mild distress secondary to shortness of breath but saturating well on oximeter HEENT: Skull symmetrical and atraumatic. Conjunctivae pale pink and moist. Pupils equal, round, reactive to light and accommodation (PERRL). External ear without lesion or discharge. Straight, nares patient, mucosa pink, no discharge. Cardio: Normal Rate and Rhythm with S1 and S2 heart sounds. No murmurs or extra heart sounds auscultated. No bruits on carotid auscultation. No peripheral edema or cyanosis. Lungs: Symmetric expansion w/ poor expansion secondary to cough. Chest and back non-tender. Decreased vesicular breath sounds-with mild wheezing noted. Abdomen: Non-tender, Non-distended, Normal Reactive Bowel Sounds Neuro: Alert, cooperative, oriented to person, place, and time. Speech clear. CN grossly intact. Upper motor strength 5/5 and Lower motor strength 5/5. Sensation intact. Course Course Course Narrative: CBC CMP Troponin UA Alcohol Level and Flu/COVID Chest x-ray Quality Measures none Orders Category Date Time Status Bedside COVID-19 Antigen Test NOW Care 05/21/25 18:48 Completed EKG (ED ONLY) *Do not use* NOW Care 05/21/25 18:47 Completed EKG (ED Only) Stat Exams 05/21/25 18:47 Draft XR chest 1V portable Stat Exams 05/21/25 18:47 Completed Alcohol, Blood Medical Stat Lab 05/21/25 18:57 Completed B-Type Natriuretic Peptide Stat Lab 05/21/25 18:57 Completed CBC Stat Lab 05/21/25 18:57 Completed Comprehensive Metabolic Panel Stat Lab 05/21/25 18:57 Completed FLU A&B [Influenza A & B Rapid Panel] Stat Lab 05/21/25 19:25 Completed Magnesium Stat Lab 05/21/25 18:57 Completed Troponin I Stat Lab 05/21/25 18:57 Completed ALBUTEROL RT 0.5ml [Proventil Rt 0.5ml] Med 05/21/25 18:49 Discontinued 10 mg INH X1 ONE Doxycycline [Vibramycin] Med 05/21/25 19:00 Discontinued 100 mg PO X1 ONE Sodium Chloride Rt Maggi 0.9% [NS Rt Maggi 0.9%] Med 05/21/25 18:49 Discontinued 3 ml INH PRN PRN predniSONE Med 05/21/25 18:49 Discontinued 20 mg PO X1 ONE Vital Signs Vital signs: Vital Signs Temperature 98.7 F 05/21/25 18:42 Pulse Rate 64 05/21/25 18:42 Respiratory Rate 20 05/21/25 18:42 Blood Pressure 145/80 H 05/21/25 18:42 Pulse Oximetry (%) 98 05/21/25 18:42 Oxygen Delivery Method Room Air 05/21/25 18:42 Shortness of Breath / Dyspnea Patient data External records reviewed:: [facility] previous records Clinical information provided by:: patient Social determinants that could affect healthcare access:: none Patient has the following chronic illnesses:: HTN COPD Substance Use Disorder-meth How is presenting disease/condition affected by chronic disease/condition?: exacerbated by (COPD ) Evaluation data The following diagnostics were reviewed and interpreted by me:: lab results, radiology exam(s) and EKG tracing(s) Lab and/or radiology exams considered but not ordered:: None Interpretation Summary: Patient is a 60 year old female with a past medical history of HTN COPD substance use disorder (meth) who presented with chief complain of shortness of breath. Mild wheezing noted on physical exam. SpO2 of 98% on room air with pulse of 87 in no acute distress. Mild luekocytosis 10.7, no anemia noted. CMP, electrolytes noted to be within normal limits. No ALICIA. Alcohol level negative. Chest x-ray noted to have pneumonia. Patient continues to be medication non-compliant with antibiotics and albuterol inhaler. #COPD exacerbation #Pneumonia - The patient's plan was discussed with attending Dr. Carlos Carvalho MD PGY2 Internal Medicine Medications / Prescriptions Medications or Prescriptions considered but not ordered:: none Medication administrations:: Medication Administration History Discontinued Medications Albuterol (Albuterol Rt 2.5 Mg/0.5 Ml Nebu) 10 mg INH X1 ONE Stop: 05/21/25 18:50 Last Admin: 05/21/25 19:54 Dose: 10 mg Documented By: YOLANDE Doxycycline Hyclate (Doxycycline 100 Mg Tablet) 100 mg PO X1 ONE Stop: 05/21/25 19:01 Last Admin: 05/21/25 19:39 Dose: 100 mg Documented By: Prednisone (Prednisone 20 Mg Tablet) 20 mg PO X1 ONE Stop: 05/21/25 18:50 Last Admin: 05/21/25 19:39 Dose: 20 mg Documented By: Sodium Chloride (Sodium Chloride Rt Maggi 0.9% 3 Ml Nebu) 3 ml INH PRN PRN PRN Reason: SOLN Stop: 06/20/25 18:48 Last Admin: 05/21/25 19:54 Dose: 3 ml Documented By: YOLANDE same as above Consultations Consultation(s) initiated? (list below): No Diagnosis Shortness of Breath Differential Diagnosis: acute exacerbation of chronic obstructive airways disease, congestive heart failure and community acquired pneumonia Most likely diagnosis given after review of the tests above:: Patient is a 60 year old female with a past medical history of HTN COPD substance use disorder (meth) who presented with chief complain of shortness of breath. Mild wheezing noted on physical exam, concern for COPD exacerbation as patient continues to smoke. SpO2 of 98% on room air with pulse of 87 in no acute distress. Mild luekocytosis 10.7, no anemia noted. CMP, electrolytes noted to be within normal limits. No ALICIA. Alcohol level negative. Chest x-ray noted to have pneumonia. Patient continues to be medication non-compliant. #COPD exacerbation, continues to smoke #Pneumonia - The patient's plan was discussed with attending Dr. Carlos Carvalho MD PGY2 Internal Medicine Admission Indicated Admission indicated?: not indicated Explain why admission is indicated or not indicated:: Patient is non-compliant to antibiotics and saturating well on room air with only mild wheezing. Admission Request Was there a request for admission?: No Disposition Plan Disposition Plan: Discharge Discharge Attestation Discharge Attestation: The patient and all family members were given an opportunity to ask questions and understood the discharge instructions. Discharge instructions specifically effects, indications for sooner follow up or return to the emergency department, and the expected course of current diagnosis. Patient condition: Stable Discharge Plan Plan Patient Disposition: HOME (Self Care) Patient condition on transfer: Stable Health Concerns: Instructions: -Please complete your antibiotic course for your pneumonia, doxycycline 100 mg twice daily, for 5 days. -Please continue to use your albuterol 2 puffs as needed for shortness of breath, no more than 6 puffs per day -Please stop smoking as this makes your COPD worse -Please follow up with your primary care provider within one week of discharge -If your symptoms worsen,please seek immediate medical attention and return to your nearest emergency room -If you do not have a primary care provider, [facility] [address] [place] [address], Prescriptions/Referrals Prescriptions/Med Rec: New doxycycline monohydrate 100 mg capsule 100 mg PO BID 5 Days Qty: 10 0RF Changed albuterol sulfate 90 mcg/actuation HFA aerosol inhaler 2 inh inhalation QID PRN (Reason: shortness of breath or wheezing) Qty: 6.7 2RF Discontinued albuterol sulfate 90 mcg/actuation HFA aerosol inhaler 2 puff inhalation Q6H PRN (Reason: shortness of breath or wheezing) Qty: 8.5 0RF cefdinir 300 mg capsule 300 mg PO BID Qty: 14 0RF Referrals: Donal Sultana PA-C [Primary Care Provider] - In 1 week Problem List Clinical Impression: Pneumonia Patient/Caregiver Discharge Instructions Print Language: German Stand Alone Forms: Leidy Award Info., Patient Portal Info Letter
[2025-05-21 19:07] LABS: Basophils # (Auto) 0.1 Thou/mm3 (0.0-0.2); Basophils % (Auto) 1 % (0-2.5); Eosinophils # (Auto) 0.2 Thou/mm3 (0.0-0.5); Eosinophils % (Auto) 2 % (0-10); Hematocrit 44.6 % (41.0-53.0); Hemoglobin 14.4 g/dL (13.5-16.0); Immature Granulocytes Auto 0.02 Thou/mm3 (0.00-0.00); Lymphocytes # (Auto) 2.5 Thou/mm3 (1.0-4.8); Lymphocytes % (Auto) 24 % (10-50); Mean Corpuscular HGB Conc 32.3 g/dl (31.0-37.0); Mean Corpuscular Hemoglobin 26.4 pg (25.0-35.0); Mean Corpuscular Volume 82 fL (80-100); Monocytes # (Auto) 0.6 Thou/mm3 (0.0-0.8); Monocytes % (Auto) 6 % (0-12); Neutrophils # (Auto) 7.2 Thou/mm3 (1.8-7.7); Neutrophils % (Auto) 68 % (37-80); Nucleated Red Blood Cell # 0.00 Thou/mm3 (0.00-0.00); Nucleated Red Blood Cell % 0 /100 WBC (0); Platelet Count 242 Thou/mm3 (140-440); RDW Standard Deviation 44.5 fL (35.1-43.9); Red Blood Count 5.46 Miln/mm3 (4.50-5.90); White Blood Count 10.7 Thou/mm3 (3.8-10.6)
[2025-05-21 19:26] LABS: B-Type Natriuretic Peptide < 20 pg/mL (0-100)
[2025-05-21] MEDS: DOXYCYCLINE 100 MG TABLET PO (19:39)
[2025-05-21 19:53] LABS: Alanine Aminotransferase 14 U/L (10-49); Albumin, Serum 4.6 gm/dL (3.5-5.0); Albumin/Globulin Ratio 1.8 (1.2-2.2); Alkaline Phosphatase 87 U/L (46-116); Anion Gap 8 (7-16); Aspartate Amino Transferase 23 U/L (0-34); BUN/Creatinine Ratio 9 Ratio (12-20); Bilirubin,Total 0.6 mg/dL (0.3-1.2); Blood Urea Nitrogen 7 mg/dL (9-23); Calcium 9.5 mg/dL (8.3-10.6); Calcium (Corrected) 9.5 mg/dL (8.5-10.1); Carbon Dioxide 25.7 mMol/L (20.0-31.0); Chloride 107 mMol/L (98-107); Creatinine (Component) 0.8 mg/dL (0.6-1.3); Globulin 2.6 gm/dL (2.3-3.5); Glucose 76 mg/dL (74-106); Magnesium 1.8 mg/dL (1.6-2.6); Osmolality,Calculated 278 (275-295); Potassium 3.5 mMol/L (3.4-5.1); Sodium 141 mMol/L (136-145); Total Protein 7.2 gm/dL (5.7-8.2); Troponin I < 0.020 ng/mL (0.0-0.045); eGFR > 60 See Note
[2025-05-21 19:54] VITALS: PULSE 75
[2025-05-21] MEDS: SODIUM CHLORIDE RT SOL 0.9% 3 ML NEBU INH (19:54)
[2025-05-21] MEDS: ALBUTEROL RT 2.5 MG/0.5 ML NEBU 10 MG INH (19:54)
[2025-05-21 19:57] LABS: Alcohol, Blood Medical < 3.0 mg/dL (0-10.0)
[2025-05-21 20:01] VITALS: PULSE 87; RESP 18; O2SAT 98
[2025-05-21 20:09] LABS: Influenza A Ag Negative; Influenza B Ag Negative
[2025-05-21 21:29] VITALS: BP 138/76; PULSE 72; RESP 16; TEMP 36.8; O2SAT 98
== END 2025-05-21 21:31 | disposition home or self-care (01) ==
PROVIDERS: Emergency Provider Emergency Medicine; PCP Physician Assistant
DX: J18.9 Pneumonia, unspecified organism (principal); I10 Essential (primary) hypertension; J44.0 Chronic obstructive pulmonary disease with (acute) lower respiratory infection; J44.1 Chronic obstructive pulmonary disease with (acute) exacerbation; Z87.891 Personal history of nicotine dependence; Z91.148 Patient's other noncompliance with medication regimen for other reason
CPT/HCPCS: 36415; 71045; 80053; 80307; 80320; 81001; 83735; 83880; 84484; 85025; 87502; 87635; 93005; 94644; 99284; J7512; A9270; G0480; J7611

== ENCOUNTER 2025-06-06 00:04 | Emergency (ER) | payer MEDICAID, SELFPAY ==
[2025-06-06 00:17] VITALS: BP 151/85; PULSE 83; RESP 19; TEMP 36.7; O2SAT 98
--- NOTE | 2025-06-06 00:23 | XR_ITS ---
EXAMINATION: PA chest lateral 2 views TECHNIQUE: Upright PA and lateral chest 2 views Date and time: June 06, 2025, 12:45 a.m. COMPARISON: May 21, 2025 INDICATIONS: Shortness of breath 1 week. FINDINGS: Early pneumonia in the left lower lung zone Normal heart size Mild prominence pulmonary arteries Intact osseous structures IMPRESSION: Early pneumonia in the left lower lung zone
--- NOTE | 2025-06-06 00:24 | PD.EDRME ---
Rapid Medical Screening Exam RME Arrival date/time: 06/06/25 00:04 60-year-old male reports with complaints of shortness of breath x 1 week Chief Complaint: Flu Like Symptoms Time Seen by Provider: 06/06/25 00:06 Vital signs: Vital Signs Temperature 98.1 F 06/06/25 00:17 Pulse Rate 83 06/06/25 00:17 Respiratory Rate 19 06/06/25 00:17 Blood Pressure 151/85 H 06/06/25 00:17 Pulse Oximetry (%) 98 06/06/25 00:17 Oxygen Delivery Method Room Air 06/06/25 00:17 Exam: 1 Clinical Impression: 1
[2025-06-06 01:07] LABS: Influenza A Ag Negative; Influenza B Ag Negative
[2025-06-06 01:09] LABS: COVID-19 Antigen (In-House) Negative (Negative)
--- NOTE | 2025-06-06 03:20 | PD.EDURI ---
Upper Respiratory Inf. RME/HPI General Chief Complaint: Flu Like Symptoms Stated Complaint: COUGHING,DIFF BREATHING Time Seen by Provider: 06/06/25 00:06 Arrival date/time: 06/06/25 00:04 Limitations: no limitations RME / HPI RME / HPI Narrative: 06/06/25 00:04 60-year-old male reports with complaints of shortness of breath x [address] Glez'abelino Main ED Evaluation: 60yo male with a history of COPD, HTN Related Data Previous Rx's ?Medication ?Instructions ?Recorded albuterol sulfate 90 mcg/actuation 2 inh inhalation QID PRN shortness 05/21/25 aerosol inhaler of breath or wheezing #6.7 grams albuterol sulfate 90 mcg/actuation 1 inh inhalation QID PRN shortness 06/06/25 aerosol inhaler (Ventolin HFA) of breath or wheezing #8.5 grams Allergies Allergy/AdvReac Type Severity Reaction Status Date / Time coconut Allergy Severe Hives Verified 06/06/25 00:05 iodine Allergy Severe Hives Verified 06/06/25 00:05 Penicillins Allergy Severe Hives Verified 06/06/25 00:05 Review of Systems Review of Systems Systems Reviewed: All systems reviewed, normal except as documented Past Medical History Past Medical History NEUROLOGIC: Positive Epilepsy; Negative Neurological Disorders CARDIAC: Positive Cardiac Disorders, Myocardial Infarction and Hypertension; Negative Congestive Heart Failure RESPIRATORY: Positive Chronic Obstructive Pulmonary Disease (COPD), Asthma and Pneumonia; Negative Bronchitis, Emphysema, Pulmonary Fibrosis, Cystic Fibrosis, Tuberculosis, Pulmonary Embolism, Pulmonary Edema or Sleep Apnea GASTROINTESTINAL: Negative Gastrointestinal Disorders, Hepatitis or Colorectal Cancer GENITOURINARY: Negative Genitourinary Disorders, Renal Disease or Prostate Cancer REPRODUCTIVE: Negative Breast Cancer or Testicular Cancer MUSCULOSKELETAL: Negative Musculoskeletal Disorders, Bone Cancer or Carpal Tunnel Syndrome ENDOCRINE: Negative Endocrine Disorders, Diabetes Mellitus Type 1 or Diabetes Mellitus Type 2 HEMATOLOGIC: Negative Blood Disorders or Sickle Cell Disease OTHER HISTORY: Negative Hospitalization, Autoimmune Disease, Down Syndrome, Developmental Delay, Shingles, Falls, Blood Transfusions, Blood Transfusion Reaction, Anesthesia Reactions, Organ Transplant, Chemotherapy, Radiation Therapy, Hyperbaric Therapy, MRSA, VRSA, Vancomycin-Resistant Enterococci, Human Immunodeficiency Virus (HIV), Chicken Pox, Measles, Mumps, Rubella (Ecuadorean Measles), Pertussis, Clostridium Difficile, Cancer, Breast Cancer, Colorectal Cancer, Lung Cancer, Ovarian Cancer, Prostate Cancer or Testicular Cancer Family History FAMILY HISTORY: Positive Family Respiratory Disorders, Family Cardiac Disorders and Family Cancer; Negative Family Psychiatric Problems, Family Gastrointestinal Problems, Family Surgery or Family Anesthesia Reaction Surgical History SURGICAL: Negative Cardiac Surgery, Endocrine Surgery, Thyroidectomy, Ear Surgery, Abdominal Surgery, Nephrectomy, Transurethral Resection, Joint Replacement, Amputation, Open Reduction Internal Fixation, Arthroscopy, Neurologic Surgery, Brain Shunt, Mastectomy, Lumpectomy, Hysterectomy, Tubal Ligation, Section, Vasectomy or Organ Transplant Social History SMOKING STATUS: Current some day smoker SECOND HAND EXPOSURE: No SUBSTANCE USE: methamphetamine ED Exam General Limitations: Present no limitations General appearance: Present alert and in no apparent distress Head Head exam: Present atraumatic Eye Eye exam: Present normal appearance, PERRL and EOMI ENT ENT exam: Present normal exam, normal oropharynx and mucous membranes moist Neck Neck exam: Present normal inspection, full ROM and trachea midline Chest Chest inspection: Present normal inspection and symmetric chest wall rise Respiratory Respiratory exam: Present normal lung sounds bilaterally Cardiovascular Cardiovascular exam: Present regular rate, normal rhythm and normal heart sounds Abdominal Exam Abdominal exam: Present soft and normal bowel sounds Extremities Exam Extremities exam: Present normal inspection and full ROM Back Exam Back exam: Present normal inspection and full ROM Neurological Exam Neurological exam: Present alert, oriented X3 and CN II-XII intact Psychiatric Psychiatric exam: Present normal affect and normal mood Skin Skin exam: Present warm, dry, intact and normal color Course Quality Measures none Orders Category Date Time Status XR chest 2V Stat Exams 06/06/25 00:23 Taken COVID-19 Antigen (In-House) Stat Lab 06/06/25 00:34 Completed FLU A&B [Influenza A & B Rapid Panel] Stat Lab 06/06/25 00:34 Completed Vital Signs Vital signs: Vital Signs Temperature 98.1 F 06/06/25 00:17 Pulse Rate 83 06/06/25 00:17 Respiratory Rate 19 06/06/25 00:17 Blood Pressure 151/85 H 06/06/25 00:17 Pulse Oximetry (%) 98 06/06/25 00:17 Oxygen Delivery Method Room Air 06/06/25 00:17 Upper Respiratory Infection MDM Narrative MDM Narrative:: Scribe Attestation: 06/06/25 Mariely Adame am scribing for and in the presence of Dr. Glez. Patient data External records reviewed:: [facility] previous records (Per chart review, patient was seen here on 05/21/25 for pneumonia.) Clinical information provided by:: patient Social determinants that could affect healthcare access:: none Patient has the following chronic illnesses:: COPD, HTN How is presenting disease/condition affected by chronic disease/condition?: exacerbated by Evaluation data The following diagnostics were reviewed and interpreted by me:: lab results and radiology exam(s) Lab and/or radiology exams considered but not ordered:: none Interpretation Summary: COVID/Influenza negative. CXR Medications / Prescriptions Medications or Prescriptions considered but not ordered:: none Discharge Plan Plan Patient Disposition: HOME (Self Care) Patient condition on transfer: Stable Prescriptions/Referrals Prescriptions/Med Rec: New albuterol sulfate [Ventolin HFA] 90 mcg/actuation HFA aerosol inhaler 1 inh inhalation QID PRN (Reason: shortness of breath or wheezing) Qty: 8.5 0RF No Action albuterol sulfate 90 mcg/actuation HFA aerosol inhaler 2 inh inhalation QID PRN (Reason: shortness of breath or wheezing) Qty: 6.7 2RF Referrals: Donal Sultana PA-C [Primary Care Provider] - In 1 week Patient/Caregiver Discharge Instructions Education Materials: Caring for Your Inhaler, ED Cough Chronic Uncertain Cause Adult Additional Instructions: You can use the inhaler as needed for cough. Return to Emergency Department for worsening symptoms, or any other concerns. Print Language: Brazilian Stand Alone Forms: Leidy Award Info., Patient Portal Info Letter
--- NOTE | 2025-06-06 03:28 | PC.NURSE ---
NO ANSWER AT ER LOBBY OR OUTSIDE ER TO BE RE EVALUATED.
--- NOTE | 2025-06-06 03:29 | PD.EDADDENDU ---
Attestation MD Attestation I did not do a history and physical exam on this patient. The patient left without being seen..
--- NOTE | 2025-06-06 03:38 | PC.NURSE ---
NO ANSWER AT ER LOBBY OR OUTSIDE ER TO BE REEVALUATED.
--- NOTE | 2025-06-06 05:13 | PD.EDURI ---
Upper Respiratory Inf. RME/HPI General Chief Complaint: Flu Like Symptoms Stated Complaint: COUGHING,DIFF BREATHING Time Seen by Provider: 06/06/25 00:06 Arrival date/time: 06/06/25 00:04 Limitations: no limitations RME / HPI RME / HPI Narrative: 06/06/25 00:04 60-year-old male reports with complaints of shortness of breath x [address] Glez'abelino Main ED Evaluation: 60yo male with a history of COPD, HTN Exam: Related Data Previous Rx's ?Medication ?Instructions ?Recorded albuterol sulfate 90 mcg/actuation 1 inh inhalation QID PRN shortness 06/06/25 aerosol inhaler (Ventolin HFA) of breath or wheezing #8.5 grams Allergies Allergy/AdvReac Type Severity Reaction Status Date / Time coconut Allergy Severe Hives Verified 06/06/25 00:05 iodine Allergy Severe Hives Verified 06/06/25 00:05 Penicillins Allergy Severe Hives Verified 06/06/25 00:05 Review of Systems Review of Systems Systems Reviewed: All systems reviewed, normal except as documented ED Exam General Limitations: Present no limitations General appearance: Present alert and in no apparent distress Head Head exam: Present atraumatic Eye Eye exam: Present normal appearance, PERRL and EOMI ENT ENT exam: Present normal exam, normal oropharynx and mucous membranes moist Neck Neck exam: Present normal inspection, full ROM and trachea midline Chest Chest inspection: Present normal inspection and symmetric chest wall rise Respiratory Respiratory exam: Present normal lung sounds bilaterally Cardiovascular Cardiovascular exam: Present regular rate, normal rhythm and normal heart sounds Abdominal Exam Abdominal exam: Present soft and normal bowel sounds Extremities Exam Extremities exam: Present normal inspection and full ROM Back Exam Back exam: Present normal inspection and full ROM Neurological Exam Neurological exam: Present alert, oriented X3 and CN II-XII intact Psychiatric Psychiatric exam: Present normal affect and normal mood Skin Skin exam: Present warm, dry, intact and normal color Course Course Course Narrative: CXR is ordered for determining the etiology of cough. Quality Measures none Orders Category Date Time Status XR chest 2V Stat Exams 06/06/25 00:23 Taken COVID-19 Antigen (In-House) Stat Lab 06/06/25 00:34 Completed FLU A&B [Influenza A & B Rapid Panel] Stat Lab 06/06/25 00:34 Completed Albuterol* Inhaler [Proventil Inhaler] Med 06/06/25 05:11 Once 2 puff INH X1 ONE Vital Signs Vital signs: Vital Signs Temperature 98.1 F 06/06/25 00:17 Pulse Rate 83 06/06/25 00:17 Respiratory Rate 19 06/06/25 00:17 Blood Pressure 151/85 H 06/06/25 00:17 Pulse Oximetry (%) 98 06/06/25 00:17 Oxygen Delivery Method Room Air 06/06/25 00:17 Upper Respiratory Infection MDM Narrative MDM Narrative:: Scribe Attestation: 06/06/25 - Mariely Coates am scribing for and in the presence of Dr. Glez. Patient data External records reviewed:: [facility] previous records Clinical information provided by:: patient Social determinants that could affect healthcare access:: substance use Medications / Prescriptions Medication administrations:: Medication Administration History Albuterol (Albuterol Inh 8 Gm) 2 puff INH X1 ONE Stop: 06/06/25 05:12 Discharge Plan Prescriptions/Referrals Prescriptions/Med Rec: New albuterol sulfate [Ventolin HFA] 90 mcg/actuation HFA aerosol inhaler 1 inh inhalation QID PRN (Reason: shortness of breath or wheezing) Qty: 8.5 0RF Discontinued albuterol sulfate 90 mcg/actuation HFA aerosol inhaler 2 inh inhalation QID PRN (Reason: shortness of breath or wheezing) Qty: 6.7 2RF Referrals: Donal Sultana PA-C [Primary Care Provider] - In 1 week Problem List Clinical Impression: Patient left without being seen Patient/Caregiver Discharge Instructions Print Language: Yoruba Stand Alone Forms: Patient Portal Info Letter
--- NOTE | 2025-06-06 05:14 | PD.EDURI ---
Upper Respiratory Inf. SCOOTERE/HPI General Chief Complaint: Flu Like Symptoms Stated Complaint: COUGHING,DIFF BREATHING Time Seen by Provider: 06/06/25 00:06 Arrival date/time: 06/06/25 00:04 Limitations: no limitations NELSON / ABRAM CRONIN Complaint: cough and nasal congestion Onset (ago): day(s) (1) Severity: mild Relieving factors: nothing Exacerbating factors: other (Smoking) Able to tolerate fluids by mouth: Yes Context: sick contacts Associated symptoms: denies other symptoms and fever Treatments prior to arrival: none NELSON / ABRAM Narrative: 06/06/25 00:04 60-year-old male reports with complaints of shortness of breath x [address] [facility] Main ED Evaluation: 60yo male with a history of COPD, HTN presents to the emergency department with 1 day history of wheezing. The patient states this is similar to when he has had problems with his COPD in the past. Patient has dry cough. The wheezing got worse in the last 24 hours. No chest pain. No other shortness of breath. No lower extremity swelling. Patient states he still actively smokes occasionally. Exam: Related Data Previous Rx's ?Medication ?Instructions ?Recorded albuterol sulfate 90 mcg/actuation 1 inh inhalation QID PRN shortness 06/06/25 aerosol inhaler (Ventolin HFA) of breath or wheezing #8.5 grams Allergies Allergy/AdvReac Type Severity Reaction Status Date / Time coconut Allergy Severe Hives Verified 06/06/25 00:05 iodine Allergy Severe Hives Verified 06/06/25 00:05 Penicillins Allergy Severe Hives Verified 06/06/25 00:05 Review of Systems Review of Systems Systems Reviewed: All systems reviewed, normal except as documented ED Exam Narrative Physical exam: Patient appears fatigued otherwise not cyanotic. Talking in full sentences. General Limitations: Present no limitations General appearance: Present alert and in no apparent distress Head Head exam: Present atraumatic Eye Eye exam: Present normal appearance, PERRL and EOMI ENT ENT exam: Present normal exam, normal oropharynx and mucous membranes moist Neck Neck exam: Present normal inspection, full ROM and trachea midline Chest Chest inspection: Present normal inspection and symmetric chest wall rise Respiratory Respiratory exam: Present other (Mild diffuse wheezing at the bases.) Cardiovascular Cardiovascular exam: Present regular rate; Absent systolic murmur Abdominal Exam Abdominal exam: Present soft and normal bowel sounds Neurological Exam Neurological exam: Present alert, oriented X3 and CN II-XII intact Psychiatric Psychiatric exam: Present normal affect and normal mood Skin Skin exam: Present warm, dry, intact and normal color Course Course Course Narrative: CXR is ordered for determining the etiology of cough. Quality Measures none Orders Category Date Time Status XR chest 2V Stat Exams 06/06/25 00:23 Taken COVID-19 Antigen (In-House) Stat Lab 06/06/25 00:34 Completed FLU A&B [Influenza A & B Rapid Panel] Stat Lab 06/06/25 00:34 Completed Albuterol* Inhaler [Proventil Inhaler] Med 06/06/25 05:11 Discontinued 2 puff INH X1 ONE Albuterol/Ipratr Rt Maggi [Duoneb Rt Maggi] Med 06/06/25 05:14 Once 3 ml INH X1 ONE predniSONE Med 06/06/25 05:14 Once 60 mg PO X1 ONE Vital Signs Vital signs: Vital Signs Temperature 98.1 F 06/06/25 00:17 Pulse Rate 83 06/06/25 00:17 Respiratory Rate 19 06/06/25 00:17 Blood Pressure 151/85 H 06/06/25 00:17 Pulse Oximetry (%) 98 06/06/25 00:17 Oxygen Delivery Method Room Air 06/06/25 00:17 Upper Respiratory Infection MDM Narrative MDM Narrative:: 60-year-old male presents emergency department with dry cough and wheeze x 1 day. Patient states similar to his COPD exacerbation in the past. Differential diagnosis includes upper respiratory like infection, viral syndrome, cough, pneumonia, COPD exacerbation. Patient is treated with 1 DuoNeb here. Since he does smoke actively will treat with 5-day dose of prednisone since he likely has early COPD exacerbation. Labs are reviewed interpreted by me. COVID, influenza are negative. Vitals are stable here in the Emergency Department with 98% on room air. No tachycardia cardia or bradycardia. Patient data External records reviewed:: [facility] previous records (Per chart review, patient was seen here on 05/21/25 for pneumonia.) Clinical information provided by:: patient Social determinants that could affect healthcare access:: substance use Patient has the following chronic illnesses:: COPD, HTN How is presenting disease/condition affected by chronic disease/condition?: exacerbated by Evaluation data The following diagnostics were reviewed and interpreted by me:: lab results and radiology exam(s) Lab and/or radiology exams considered but not ordered:: none Interpretation Summary: CXR shows no cardiomegaly, no CHF, no infiltrates, no increased peripheral markings, according to my interpretation. Medications / Prescriptions Medications or Prescriptions considered but not ordered:: none Medication administrations:: Medication Administration History Albuterol/Ipratropium (Albuterol/Ipratropium (Duoneb) Rt Maggi 3 Ml Nebu) 3 ml INH X1 ONE Stop: 06/06/25 05:15 Prednisone (Prednisone 20 Mg Tablet) 60 mg PO X1 ONE Stop: 06/06/25 05:15 Discontinued Medications Albuterol (Albuterol Inh 8 Gm) 2 puff INH X1 ONE Stop: 06/06/25 05:12 see above Consultations Consultation(s) initiated? (list below): No Diagnosis Upper Respiratory Differential Diagnosis: other (See MDM) Most likely diagnosis given after review of the tests above:: see clinical impression below Admission Indicated Admission indicated?: not indicated Admission Request Was there a request for admission?: No Disposition Plan Disposition Plan: Discharge Discharge Attestation Discharge Attestation: The patient and all family members were given an opportunity to ask questions and understood the discharge instructions. Discharge instructions specifically effects, indications for sooner follow up or return to the emergency department, and the expected course of current diagnosis. Patient condition: Stable Discharge Plan Plan Patient condition on transfer: Stable Prescriptions/Referrals Prescriptions/Med Rec: New albuterol sulfate [Ventolin HFA] 90 mcg/actuation HFA aerosol inhaler 1 inh inhalation QID PRN (Reason: shortness of breath or wheezing) Qty: 8.5 0RF Discontinued albuterol sulfate 90 mcg/actuation HFA aerosol inhaler 2 inh inhalation QID PRN (Reason: shortness of breath or wheezing) Qty: 6.7 2RF Referrals: Donal Sultana PA-C [Primary Care Provider] - In 1 week Problem List Clinical Impression: Acute exacerbation of chronic obstructive pulmonary disease Patient/Caregiver Discharge Instructions Print Language: Georgian Stand Alone Forms: Patient Portal Info Letter
[2025-06-06] MEDS: ALBUTEROL/IPRATROPIUM (Duoneb) RT SOL 3 ML NEBU INH (05:25)
[2025-06-06 05:27] VITALS: PULSE 98; RESP 20; O2SAT 98
[2025-06-06 06:13] VITALS: RESP 16
== END 2025-06-06 06:14 | disposition home or self-care (01) ==
PROVIDERS: Physician Assistant; Emergency Provider Emergency Medicine; PCP Physician Assistant
DX: J44.1 Chronic obstructive pulmonary disease with (acute) exacerbation (principal); F17.210 Nicotine dependence, cigarettes, uncomplicated
CPT/HCPCS: 71046; 87502; 87811; 94640; 99283; A9270; J7512